=== PATIENT | female | born 1945 | race Caucasian/White ===

== ENCOUNTER → 2016-09-27 | Outpatient (REF) | payer MEDICARE, BC ==
[2016-09-27 14:58] LABS: ALBUMIN 4.1 GM/DL (3.2-5.2); ALBUMIN/GLOBULIN RATIO 1.46 (1.00-1.93); ALKALINE PHOSPHATASE 78 U/L (45-117); ALT/SGPT 30 U/L (12-78); ANION GAP 7 MEQ/L (8-16); AST/SGOT 20 U/L (15-37); BILIRUBIN,TOTAL 0.5 MG/DL (0.2-1.0); BLOOD UREA NITROGEN 15 MG/DL (7-18); CALCIUM LEVEL 8.7 MG/DL (8.8-10.2); CARBON DIOXIDE LEVEL 29 MEQ/L (21-32); CHLORIDE LEVEL 105 MEQ/L (98-107); CHOLESTEROL LEVEL 157 MG/DL (<200); CREATININE FOR GFR 0.69 MG/DL (0.55-1.02); GLOMERULAR FILTRATION RATE > 60.0 (>39); GLUCOSE, FASTING 135 MG/DL (83-110); POTASSIUM SERUM 4.6 MEQ/L (3.5-5.1); SODIUM LEVEL 141 MEQ/L (136-145); TOTAL PROTEIN 6.9 GM/DL (6.4-8.2); TRIGLYCERIDES LEVEL 97 MG/DL (<150)
== END ==
LOC: M SFHCLACO 08:58
PROVIDERS: ATTEND Physician Assistant
DX: E11.9 Type 2 diabetes mellitus without complications (principal); E78.2 Mixed hyperlipidemia; E55.9 Vitamin D deficiency, unspecified

== ENCOUNTER → 2016-10-02 | Outpatient (REF) | payer MEDICARE, BC | LOC: M SFHCLACO 15:24 | PROVIDERS: ATTEND Physician Assistant | DX: E11.9 Type 2 diabetes mellitus without complications (principal) | CPT/HCPCS: 82043; G0463 ==

== ENCOUNTER → 2016-10-16 | Outpatient (REF) | payer MEDICARE, BC ==
[2016-10-16 15:26] LABS: ALBUMIN 4.1 GM/DL (3.2-5.2); ALBUMIN/GLOBULIN RATIO 1.41 (1.00-1.93); ALKALINE PHOSPHATASE 80 U/L (45-117); ALT/SGPT 30 U/L (12-78); ANION GAP 6 MEQ/L (8-16); AST/SGOT 14 U/L (15-37); BILIRUBIN,TOTAL 0.7 MG/DL (0.2-1.0); BLOOD UREA NITROGEN 20 MG/DL (7-18); CARBON DIOXIDE LEVEL 31 MEQ/L (21-32); CHLORIDE LEVEL 104 MEQ/L (98-107); CREATININE FOR GFR 0.81 MG/DL (0.55-1.02); GLOMERULAR FILTRATION RATE > 60.0 (>39); GLUCOSE, FASTING 158 MG/DL (83-110); POTASSIUM SERUM 4.6 MEQ/L (3.5-5.1); SODIUM LEVEL 141 MEQ/L (136-145)
== END ==
LOC: M SFHCLACO 08:41
PROVIDERS: ATTEND Nurse Practitioner Family
DX: E11.9 Type 2 diabetes mellitus without complications (principal)

== ENCOUNTER → 2016-11-26 | Outpatient (CLI) | payer MEDICARE, BC ==
--- NOTE | 2016-11-26 13:00 | REPMRS ---
Patient History The patient states she has not had a clinical breast exam in over a year. Patient is postmenopausal. Family history of breast cancer in sister under age 50. Digital Woman Screen Mammo: November 26, 2016 - Exam #: [id number] Bilateral CC and MLO view(s) were taken. Technologist: Roz Garcia Technologist Prior study comparison: September 26, 2015, digital woman screen mammo performed at [facility]. September 21, 2014, digital woman screen mammo performed at [facility] to [facility]. FINDINGS: There are scattered fibroglandular densities. There has been no change in the appearance of the mammogram from the prior studies. There is a mild amount of residual fibroglandular tissue which is fairly symmetric. There is no interval development of dominant mass, architectural distortion, or clustered microcalcification suggestive of malignancy. ASSESSMENT: BI-RADS/ACR category 1 mammogram. Negative. Recommendation Routine screening mammogram in 1 year (for women over age 40). This mammogram was interpreted with the aid of an FDA-approved computer-aided dectection system. Electronically Signed By: Malik Blunt MD 11/26/16 1300
== END ==
LOC: M WHC 11:12
PROVIDERS: ATTEND Nurse Practitioner Family
DX: Z12.31 Encounter for screening mammogram for malignant neoplasm of breast (principal)

== ENCOUNTER → 2017-04-18 | Outpatient (REF) | payer MEDICARE, BC ==
[2017-04-18 16:34] LABS: ALBUMIN/GLOBULIN RATIO 1.43 (1.00-1.93); ALKALINE PHOSPHATASE 71 U/L (45-117); ALT/SGPT 28 U/L (12-78); ANION GAP 8 MEQ/L (8-16); AST/SGOT 12 U/L (15-37); BILIRUBIN,TOTAL 0.5 MG/DL (0.2-1.0); BLOOD UREA NITROGEN 23 MG/DL (7-18); CALCIUM LEVEL 8.4 MG/DL (8.8-10.2); CARBON DIOXIDE LEVEL 26 MEQ/L (21-32); CHLORIDE LEVEL 111 MEQ/L (98-107); CHOLESTEROL LEVEL 132 MG/DL (<200); CREATININE FOR GFR 0.64 MG/DL (0.55-1.02); GLOMERULAR FILTRATION RATE > 60.0 (>39); GLUCOSE, FASTING 126 MG/DL (83-110); POTASSIUM SERUM 4.5 MEQ/L (3.5-5.1); SODIUM LEVEL 145 MEQ/L (136-145); TOTAL PROTEIN 6.8 GM/DL (6.4-8.2); TRIGLYCERIDES LEVEL 101 MG/DL (<150)
== END ==
LOC: M SFHCLACO 08:40
PROVIDERS: ATTEND Nurse Practitioner Family
DX: E11.9 Type 2 diabetes mellitus without complications (principal); E78.2 Mixed hyperlipidemia; E55.9 Vitamin D deficiency, unspecified

== ENCOUNTER → 2018-01-28 | Outpatient (CLI) | payer MEDICARE, BC | LOC: M WHC 09:03 | DX: Z12.31 Encounter for screening mammogram for malignant neoplasm of breast (principal) | CPT/HCPCS: 77067 ==

== ENCOUNTER → 2018-02-05 | Outpatient (REF) | payer MEDICARE ==
[2018-02-05 13:39] LABS: APPEARANCE, URINE CLOUDY (CLEAR); BACTERIA, URINE AUTO 3+ (NEGATIVE); BILIRUBIN, URINE AUTO NEGATIVE (NEGATIVE); BLOOD, URINE BLOOD 1+ (NEGATIVE); COLOR, URINE YELLOW (YELLOW); GLUCOSE, URINE (UA) AUTO NEGATIVE (NEGATIVE); KETONE, URINE AUTO NEGATIVE (NEGATIVE); LEUKOCYTE ESTERASE, URINE AUTO 3+ (NEGATIVE); NITRITE, URINE AUTO NEGATIVE (NEGATIVE); PROTEIN, URINE AUTO NEGATIVE (NEGATIVE); RBC, URINE AUTO 8 /HPF (0-3); SPECIFIC GRAVITY URINE AUTO 1.008 (1.002-1.035); SQUAMOUS EPITHELIAL CELL UR AU 0 /HPF (0-6); UROBILINOGEN, URINE AUTO 0.2 mg/dL (0.0-2.0); WBC, URINE AUTO TNTC /HPF (0-3)
== END ==
LOC: M SFHCPLAZ 13:07
DX: R30.0 Dysuria (principal)
CPT/HCPCS: 81001

== ENCOUNTER → 2018-02-19 | Outpatient (CLI) | payer MEDICARE, BC | LOC: M RAD 09:57 | DX: N39.0 Urinary tract infection, site not specified (principal) | CPT/HCPCS: 76775 ==

== ENCOUNTER → 2018-02-20 | Outpatient (REF) | payer MEDICARE, BC ==
[2018-02-20 16:32] LABS: APPEARANCE, URINE CLEAR (CLEAR); BACTERIA, URINE AUTO NEGATIVE (NEGATIVE); BILIRUBIN, URINE AUTO NEGATIVE (NEGATIVE); BLOOD, URINE BLOOD NEGATIVE (NEGATIVE); COLOR, URINE YELLOW (YELLOW); GLUCOSE, URINE (UA) AUTO NEGATIVE (NEGATIVE); KETONE, URINE AUTO NEGATIVE (NEGATIVE); LEUKOCYTE ESTERASE, URINE AUTO TRACE (NEGATIVE); MUCUS, URINE SMALL (NEGATIVE); NITRITE, URINE AUTO NEGATIVE (NEGATIVE); PROTEIN, URINE AUTO NEGATIVE (NEGATIVE); RBC, URINE AUTO 2 /HPF (0-3); SQUAMOUS EPITHELIAL CELL UR AU 0 /HPF (0-6); UROBILINOGEN, URINE AUTO 0.2 mg/dL (0.0-2.0); WBC, URINE AUTO 4 /HPF (0-3)
== END ==
LOC: M SMT 16:15
DX: N39.0 Urinary tract infection, site not specified (principal)
CPT/HCPCS: 81001

== ENCOUNTER → 2018-03-27 | Outpatient (REF) | payer MEDICARE, BC ==
[2018-03-27 18:51] LABS: BACTERIA, URINE AUTO NEGATIVE (NEGATIVE); MUCUS, URINE SMALL (NEGATIVE); RBC, URINE AUTO 1 /HPF (0-3); SQUAMOUS EPITHELIAL CELL UR AU 1 /HPF (0-6); WBC, URINE AUTO 1 /HPF (0-3)
== END ==
LOC: M SMT 17:22
DX: R31.29 Other microscopic hematuria (principal)
CPT/HCPCS: 81015

== ENCOUNTER → 2019-01-06 | Outpatient (REF) | payer MEDICARE, BC ==
[2019-01-06 14:23] LABS: ALBUMIN 3.9 GM/DL (3.2-5.2); ALT/SGPT 25 U/L (12-78); BILIRUBIN,TOTAL 0.8 MG/DL (0.2-1.0); BLOOD UREA NITROGEN 15 MG/DL (7-18); CALCIUM LEVEL 8.9 MG/DL (8.8-10.2); CARBON DIOXIDE LEVEL 28 MEQ/L (21-32); CHLORIDE LEVEL 107 MEQ/L (98-107); GLOMERULAR FILTRATION RATE > 60.0 (>39); GLUCOSE, FASTING 127 MG/DL (70-100); POTASSIUM SERUM 4.5 MEQ/L (3.5-5.1); SODIUM LEVEL 141 MEQ/L (136-145); TOTAL 25(OH) VITAMIN D 32.5 NG/ML (30.0-100.0)
[2019-01-06 15:01] LABS: HEMOGLOBIN A1c 6.9 %
== END ==
LOC: M SFHCADAM 10:06
PROVIDERS: ATTEND Nurse Practitioner Family
DX: I10 Essential (primary) hypertension (principal); E11.9 Type 2 diabetes mellitus without complications; E55.9 Vitamin D deficiency, unspecified

== ENCOUNTER → 2019-02-16 | Outpatient (CLI) | payer MEDICARE, BC ==
--- NOTE | 2019-02-16 12:00 | REP ---
BILATERAL SCREENING DIGITAL MAMMOGRAM WITH 3D TOMOSYNTHESIS: There are no palpable abnormalities or other breast complaints. The the patient states she had a clinical breast examination January 15, 2019. The the patient states she performs self-breast examinations 12 times per year. The Tyrer-Cuzick Score is: 4.2% . Comparison is 08/21/2013. There are scattered areas of fibroglandular density. There is no dominant mass, micro calcific cluster or architectural distortion that would indicate malignancy. There are stable benign calcifications, unchanged. There are no additional findings on 3D tomosynthesiss. There is no change from the prior study. Impression: BIRADS/ACR category 2 mammogram. Benign findings . Recommendation: Routine annual screening mammography. This mammogram was interpreted with the aid of a FDA approved computer-aided detection system. A. Negative mammogram reports should not delay biopsy if a dominant or clinically suspicious mass is present. B. Not all breast cancers are identified by mammography or tomosynthesis. C. Adenosis and dense breasts may obscure an underlying neoplasm. Patient letter M1. Electronically Signed by Malik Werner MD 02/16/2019 11:51 A
== END ==
LOC: M WHC 10:28
PROVIDERS: ATTEND Nurse Practitioner Family
DX: Z12.31 Encounter for screening mammogram for malignant neoplasm of breast (principal)

== ENCOUNTER → 2019-05-07 | Outpatient (REF) | payer MEDICARE, BC ==
[2019-05-07 13:27] LABS: ALBUMIN 4.1 GM/DL (3.2-5.2); ALT/SGPT 34 U/L (12-78); BILIRUBIN,TOTAL 0.6 MG/DL (0.2-1.0); BLOOD UREA NITROGEN 14 MG/DL (7-18); CALCIUM LEVEL 8.9 MG/DL (8.8-10.2); CARBON DIOXIDE LEVEL 30 MEQ/L (21-32); CHLORIDE LEVEL 107 MEQ/L (98-107); CREATININE FOR GFR 0.65 MG/DL (0.55-1.30); GLOMERULAR FILTRATION RATE > 60.0 (>39); GLUCOSE, FASTING 126 MG/DL (70-100); POTASSIUM SERUM 4.5 MEQ/L (3.5-5.1); SODIUM LEVEL 142 MEQ/L (136-145); TOTAL PROTEIN 7.2 GM/DL (6.4-8.2)
[2019-05-07 13:29] LABS: TOTAL 25(OH) VITAMIN D 54.7 NG/ML (30.0-100.0)
== END ==
LOC: M SFHCADAM 10:31
PROVIDERS: ATTEND Nurse Practitioner Family
DX: E11.9 Type 2 diabetes mellitus without complications (principal); E55.9 Vitamin D deficiency, unspecified

== ENCOUNTER → 2019-11-02 | Outpatient (REF) | payer MEDICARE, BC ==
[2019-11-02 16:36] LABS: ALBUMIN 3.8 GM/DL (3.2-5.2); ALT/SGPT 28 U/L (12-78); BILIRUBIN,TOTAL 0.6 MG/DL (0.2-1.0); BLOOD UREA NITROGEN 18 MG/DL (7-18); CALCIUM LEVEL 8.9 MG/DL (8.8-10.2); CARBON DIOXIDE LEVEL 31 MEQ/L (21-32); CHLORIDE LEVEL 108 MEQ/L (98-107); CHOLESTEROL LEVEL 160 MG/DL (<200); CHOLESTEROL RISK RATIO 2.424 (<5); CREATININE FOR GFR 0.77 MG/DL (0.55-1.30); GLOMERULAR FILTRATION RATE > 60.0 (>39); GLUCOSE, FASTING 189 MG/DL (70-100); HDL CHOLESTEROL 66 MG/DL (>40); LDL CHOLESTEROL 69 MG/DL (<100); NON-HDL-C 94 MG/DL; SODIUM LEVEL 140 MEQ/L (136-145); TOTAL PROTEIN 6.6 GM/DL (6.4-8.2); TRIGLYCERIDES LEVEL 125 MG/DL (<150)
[2019-11-02 16:45] LABS: TOTAL 25(OH) VITAMIN D 57.2 NG/ML (30.0-100.0)
[2019-11-02 16:46] LABS: HEMOGLOBIN A1c 6.2 %
[2019-11-02 17:08] LABS: MALB URINE SIEMENS 12.8 MG/L; MAU/CREAT RATIO 9.6 MCG/MG (0.0-30.0)
== END ==
LOC: M SFHCADAM 13:36
PROVIDERS: ATTEND Nurse Practitioner Family
DX: E11.9 Type 2 diabetes mellitus without complications (principal); E78.2 Mixed hyperlipidemia; E55.9 Vitamin D deficiency, unspecified; Z79.899 Other long term (current) drug therapy

== ENCOUNTER → 2020-02-26 | Outpatient (CLI) | payer MEDICARE, BC ==
--- NOTE | 2020-03-29 13:49 | REPMRS ---
Patient History The patient states she had a clinical breast exam in December 2019. Patient is postmenopausal. Family history of breast cancer under age 50 in sister. 3D TOMOSYNTHESIS WAS PERFORMED. The [place] lifetime risk for breast cancer is 3.5%. 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 Digital Woman Screen Mammo: February 26, 2020 - Exam #: [id number] Bilateral CC and MLO view(s) were taken. Technologist: Yani Morgan, Technologist Prior study comparison: February 16, 2019, bilateral digital woman screen mammo performed at [facility]. January 28, 2018, bilateral digital woman screen mammo performed at [facility]. FINDINGS: The breast tissue is heterogeneously dense. This may lower the sensitivity of mammography. There has been no change in the appearance of the mammogram from the prior studies. There is a moderate amount of residual fibroglandular tissue which is fairly symmetric. There is no interval development of dominant mass, areas of architectural distortion, or clustered microcalcification typical of malignancy. Assessment: BI-RADS/ACR category 1 mammogram. Negative Mammogram. Recommendation Routine screening mammogram in 1 year (for women over age 40). This mammogram was interpreted with the aid of an FDA-approved computer-aided dectection system. Electronically Signed By: Malik Blunt MD 03/29/20 [id number]
== END ==
LOC: M WHC 12:18
PROVIDERS: ATTEND Nurse Practitioner Family
DX: Z12.31 Encounter for screening mammogram for malignant neoplasm of breast (principal)

== ENCOUNTER → 2020-04-26 | Outpatient (REF) | payer MEDICARE, BC ==
[2020-04-26 14:09] LABS: HEMOGLOBIN A1c 6.2 %
[2020-04-26 14:55] LABS: BILIRUBIN,TOTAL 0.7 MG/DL (0.2-1.0); BLOOD UREA NITROGEN 19 MG/DL (7-18); CALCIUM LEVEL 9.2 MG/DL (8.8-10.2); CARBON DIOXIDE LEVEL 26 MEQ/L (21-32); CHLORIDE LEVEL 107 MEQ/L (98-107); CREATININE FOR GFR 0.64 MG/DL (0.55-1.30); GLOMERULAR FILTRATION RATE > 60.0 (>39); GLUCOSE, FASTING 126 MG/DL (70-100); POTASSIUM SERUM 4.9 MEQ/L (3.5-5.1); SODIUM LEVEL 138 MEQ/L (136-145); TOTAL PROTEIN 7.1 GM/DL (6.4-8.2)
[2020-04-26 17:11] LABS: ALT/SGPT 23 U/L (12-78)
== END ==
LOC: M LABDRWAD 12:36
PROVIDERS: ATTEND Nurse Practitioner Family
DX: E11.9 Type 2 diabetes mellitus without complications (principal); I10 Essential (primary) hypertension

== ENCOUNTER → 2020-06-27 | Outpatient (REF) | payer MEDICARE, BC | LOC: M LAB REF 17:04 | PROVIDERS: ATTEND Physician Assistant | DX: L50.9 Urticaria, unspecified (principal) ==

== ENCOUNTER → 2020-11-01 | Outpatient (REF) | payer MEDICARE, BC ==
[2020-11-01 13:28] LABS: HEMOGLOBIN A1c 6.8 %
[2020-11-01 13:32] LABS: ALBUMIN 4.1 GM/DL (3.2-5.2); ALT/SGPT 31 U/L (12-78); BILIRUBIN,TOTAL 0.6 MG/DL (0.2-1.0); BLOOD UREA NITROGEN 11 MG/DL (7-18); CALCIUM LEVEL 8.7 MG/DL (8.8-10.2); CARBON DIOXIDE LEVEL 31 MEQ/L (21-32); CHLORIDE LEVEL 100 MEQ/L (98-107); CHOLESTEROL LEVEL 170 MG/DL (<200); CHOLESTEROL RISK RATIO 2.463 (<5); CREATININE FOR GFR 0.61 MG/DL (0.55-1.30); GLOMERULAR FILTRATION RATE > 60.0 (>39); GLUCOSE, FASTING 121 MG/DL (70-100); HDL CHOLESTEROL 69 MG/DL (>40); LDL CHOLESTEROL 74 MG/DL (<100); NON-HDL-C 101 MG/DL; POTASSIUM SERUM 4.3 MEQ/L (3.5-5.1); SODIUM LEVEL 136 MEQ/L (136-145); TOTAL PROTEIN 7.3 GM/DL (6.4-8.2); TRIGLYCERIDES LEVEL 133 MG/DL (<150)
[2020-11-02 14:26] LABS: CREATININE, URINE 47.5 MG/DL; MALB URINE SIEMENS 5.2 MG/L; MAU/CREAT RATIO 10.9 MCG/MG (0.0-30.0)
== END ==
LOC: M SFHCADAM 11:14
PROVIDERS: ATTEND Family Medicine
DX: E78.2 Mixed hyperlipidemia (principal); I10 Essential (primary) hypertension; E11.9 Type 2 diabetes mellitus without complications

== ENCOUNTER → 2021-01-24 | Outpatient (REF) | payer MEDICARE, BC ==
[2021-01-24 13:17] LABS: ALBUMIN 3.9 GM/DL (3.2-5.2); ALT/SGPT 33 U/L (12-78); BILIRUBIN,TOTAL 0.7 MG/DL (0.2-1.0); BLOOD UREA NITROGEN 13 MG/DL (7-18); CALCIUM LEVEL 9.1 MG/DL (8.8-10.2); CARBON DIOXIDE LEVEL 28 MEQ/L (21-32); CHLORIDE LEVEL 105 MEQ/L (98-107); CREATININE FOR GFR 0.66 MG/DL (0.55-1.30); GLOMERULAR FILTRATION RATE > 60.0 (>39); GLUCOSE, FASTING 127 MG/DL (70-100); POTASSIUM SERUM 4.7 MEQ/L (3.5-5.1); SODIUM LEVEL 140 MEQ/L (136-145); TOTAL PROTEIN 6.9 GM/DL (6.4-8.2)
[2021-01-24 13:38] LABS: HEMOGLOBIN A1c 6.4 %
== END ==
LOC: M SFHCADAM 11:01
PROVIDERS: ATTEND Nurse Practitioner Family
DX: E11.9 Type 2 diabetes mellitus without complications (principal)

== ENCOUNTER → 2021-02-09 | Outpatient (REF) | payer MEDICARE, BC | LOC: M SFHCADAM 14:45 | PROVIDERS: ATTEND Nurse Practitioner Family | DX: R19.7 Diarrhea, unspecified (principal) ==

== ENCOUNTER → 2021-03-09 | Outpatient (CLI) | payer MEDICARE, BC ==
--- NOTE | 2021-03-09 12:49 | REPMRS ---
Patient History The patient states she had a clinical breast exam in 2020. Family history of breast cancer under age 50 in sister. No breast complaints today Patient signed the MRS sheet 1st covid vaccine 02/06/21-left arm-Moderna 2nd covid vaccine 03/06/21-left arm Priors on PACS Patient Identification Verified Digital Woman Screen Mammo: March 09, 2021 - Exam #: [id number] Bilateral CC and MLO view(s) were taken. Technologist: Belia Hadley, Technologist Prior study comparison: February 26, 2020, bilateral digital woman screen mammo performed at [facility]. February 16, 2019, bilateral digital woman screen mammo performed at [facility]. January 28, 2018, bilateral digital woman screen mammo performed at [facility]. FINDINGS: There are scattered fibroglandular densities. There has been no change in the appearance of the mammogram from the prior studies. There is a mild amount of scattered fibroglandular density which is fairly symmetric. There is no interval development of dominant mass, architectural distortion, or grouped microcalcification suggestive of malignancy. 3-D tomosynthesis shows no additional findings. Assessment: BI-RADS/ACR category 1 mammogram. Negative Mammogram. Recommendation Routine screening mammogram of both breasts in 1 year (for women over age 40). This patient's [facility] Lifetime Breast Cancer Risk is estimated at 3.2 %. This mammogram was interpreted with the aid of an FDA-approved computer-aided dectection system. Electronically Signed By: Rosendo Rowan MD 03/09/21 [id number]
--- NOTE | 2021-03-09 12:56 | DEXAMM ---
INDICATION: M85.80 LOW BONE DENSITY. COMPARISON: Comparison study is from April 27, 2015.. TECHNIQUE: Bone density was measured using dual-energy x-ray absorptionmetry (DEXA). FINDINGS: AP SPINE L1-L4 BMD 1.376 g/cm2 Young Adult T-Score 1.5 Age Matched Z-Score 3.3. LT FEMUR, TOTAL BMD 0.893 g/cm2 Young Adult T-Score -0.9 Age Matched Z-Score 0.9. LT NECK BMD 0.892 g/cm2 Young Adult T-Score -1.0 Age Matched Z-Score 1.0. RT FEMUR, TOTAL BMD 0.886 g/cm2 Young Adult T-Score -1.0 Age Matched Z-Score 0.9. RT NECK BMD 0.909 g/cm2 Young Adult T-Score -0.9 Age Matched Z-Score 1.1. IMPRESSION: There is normal bone density of the spine. There is low bone density of the left hip. There is low bone density of the right hip. The density of the spine has increased 2.6% since the initial exam on April 27, 2015. The density of the left hip has decreased 3.4% since initial exam on April 27, 2015. The density of the right hip has decreased 4.0% since the initial exam on April 27, 2015. FOLLOW-UP: Recommendation for the next bone density exam: 2 years. <Electronically signed by Rosendo Rowan > 03/09/21 [id number]
== END ==
LOC: M WHC 11:03
PROVIDERS: ATTEND Nurse Practitioner Family
DX: Z12.31 Encounter for screening mammogram for malignant neoplasm of breast (principal); M85.80 Other specified disorders of bone density and structure, unspecified site; Z80.3 Family history of malignant neoplasm of breast

== ENCOUNTER → 2021-05-18 | Outpatient (CLI) | payer MEDICARE, BC ==
[~2021-05-18] MED LIST: APPL300T4 PO; CALCCAP4 PO; CARV25TA PO; CODCAP PO; METH-855 PO; OSTE5TAB PO; PROBCAP14 PO; ROSU20TA5 PO; SM STAB3 PO
[2021-05-18 15:45] LABS: ALT/SGPT 28 U/L (12-78); BILIRUBIN,TOTAL 0.7 MG/DL (0.2-1.0); BLOOD UREA NITROGEN 16 MG/DL (7-18); CALCIUM LEVEL 9.1 MG/DL (8.8-10.2); CARBON DIOXIDE LEVEL 31 MEQ/L (21-32); CHLORIDE LEVEL 107 MEQ/L (98-107); CREATININE FOR GFR 0.67 MG/DL (0.55-1.30); GLOMERULAR FILTRATION RATE > 60.0 (>39); GLUCOSE, FASTING 119 MG/DL (70-100); POTASSIUM SERUM 4.9 MEQ/L (3.5-5.1); SODIUM LEVEL 140 MEQ/L (136-145)
[2021-05-18 15:53] LABS: TOTAL 25(OH) VITAMIN D 58.1 NG/ML (30.0-100.0)
[2021-05-18 17:25] LABS: HEMOGLOBIN A1c 6.3 %
== END ==
LOC: M PLALAB 12:33
PROVIDERS: ATTEND Nurse Practitioner Family
DX: E55.9 Vitamin D deficiency, unspecified (principal); E11.9 Type 2 diabetes mellitus without complications
CPT/HCPCS: 36415; 80053; 82306; 83036; G0463

== ENCOUNTER → 2021-05-19 | Outpatient (CLI) | payer MEDICARE, BC | LOC: M LABSMTC 10:21 | PROVIDERS: ATTEND Anesthesiology | DX: Z01.812 Encounter for preprocedural laboratory examination (principal); Z20.822 Contact with and (suspected) exposure to COVID-19 ==

== ENCOUNTER 2021-05-24 08:45 | Day surgery (SDC) | payer MEDICARE, BC ==
[~2021-05-24] VITALS: Ht 162.6 cm; Wt 79.4 kg
[~2021-05-24 08:45] MED LIST changes: +LIDOCAINE 2% 100MG/5ML SDV (FOR ANES.) As Ordered ONE; +NS 1,000 ML IV ONE; +propofoL 200 MG/20 ML VIAL As Ordered ONE
--- OUTSIDE RECORDS SUMMARY | 2021-05-24 08:48 | CCD | Continuity of Care Document ---
Author Author Shreya BALDERAS M.D. 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 Onset: 03/28/20 21 Screening for malignant neoplasm of colon Devin shipley M.D. Onset: 10/19/2014 Social History Type Date Description Comments Sex Unknown ETOH Use Rarely consumes alcohol Tobacco Use Start: Unknown End: Unknown Patient is a former smoker Allergies, Adverse Reactions, Alerts Active Allergies Criticality Reaction | Severity Comments Date Penicillin Unable to assess criticality 10/19/2014 Codeine Unable to assess criticality 10/19/2014 Lipitor Unable to assess criticality 10/19/2014 Metformin Unable to assess criticality 10/19/2014 Oxycodone Unable to assess criticality 10/19/2014 Macrobid Unable to assess criticality 10/19/2014 Medications Active Medications SIG Qnty Indications Ordering Provide r Date S[place]ab [id number] Tablets as directed 1box Devin Balderas M.D. 03/28/2021 Loperamide HCL 2mg Capsules 1 cap by mouth every 4 hours as needed diarrhea 180caps Devin crockett M.D. 03/28/2021 Vitamin D-3 5000Unit Tablets Three Times A Day Unknown Carvedilol 25mg Tablets Take One Tablet By Mouth Twice A Day With Meals Unknown Methenamine Hippurate 1gm Tablets Take One Tablet By Mouth Twice A Day Unknown Rosuvastatin Calcium 20mg Tablets Take One Tablet By Mouth Every Day Unknown Cod Liver Oil Capsules Unknown Apple Cider Vinegar 500mg Tablets Unknown B Complex Capsules Unknown Caltrate 600+D3 [id number] Tablets Unknown Osteo Bi-Flex One Per Day Tablets Unknown Parotid PMG Unknown Trubiotics Capsules Unknown Immunizations Description No Information Available Vital Signs Date Vital Result Comment 03/28/2021 2:22pm Height 63 inches 5'3" Weight 167.00 lb BP Systolic 132 mmHg BP Diastolic 75 mmHg Heart Rate 63 /min BMI (Body Mass Index) 29.6 kg/m2 Weight 75.751 kg Body Temperature 96.9 F 10/19/2014 1:41pm Height 63 inches 5'3" Weight 175.00 lb BP Systolic 151 mmHg BP Diastolic 83 mmHg Heart Rate 75 /min BMI (Body Mass Index) 31.0 kg/m2 Weight 79.380 kg Results Description No Information Available Procedures Date Code Description Status 03/28/2021 27989 Office/Outpatient New Low [facility] 30 -44 Minutes Completed Medical Devices Description No Information Available Encounters Type Date Location Provider Dx Diagnosis Office Visit 03/28/2021 2:00p Main Office Devin Balderas M.D. K 52.9 Noninfective gastroenteritis and colitis, unspecified Assessments Date Code Description Provider 03/28/2021 K52.9 Chronic diarrhea Devin crockett M.D. Plan of Treatment Future Appointment(s):* 05/10/2021 7:30 am - Harpreet at Main Office * 05/24/2021 11:15 am - Devin Balderas M.D. at Main Office 03/28/2021 - Devin Balderas M.D.* K52.9 Chronic diarrhea* Comments:* 76 yo wf who presents for a colonoscopy due to a h/o diarrhea for over 1 yr. No c/o abdominal pain, weight loss, positive change in bowel habits, no rectal bl eeding. No family h/o colon cancer. No h/o chest pain, or sob. Plan:1. Colonoscopy + ileoscopy + biopsies.2. Informed consent. Functional Status Description No Information Available Mental Status Description No Information Available Referrals Description No Information Available
--- OUTSIDE RECORDS SUMMARY | 2021-05-24 08:49 | CCD ---
Author Author [facility] Organization [facility] Address Unknown Phone Unavailable Care Team Providers Care Marketing Strategy Manager Name Role Phone Lele Balderas MD Unavailable Unavailable Lele Balderas MD Unavailable Unavailable Lele Balderas MD Unavailable Unavailable Lele Balderas MD Unavailable Unavailable Lele Balderas MD Unavailable Unavailable Lele Balderas MD Unavailable Unavailable Lele Balderas MD Unavailable Unavailable Lele Balderas MD Unavailable Unavailable Lele Balderas MD Unavailable Unavailable Lele Balderas MD Unavailable Unavailable Lele Balderas MD Unavailable Unavailable Lele Balderas MD Unavailable Unavailable Lele Balderas MD Unavailable Unavailable Lele Balderas MD Unavailable Unavailable Lele Balderas MD Unavailable Unavailable Lele Balderas MD Unavailable Unavailable Lele Balderas MD Unavailable Unavailable Lele Balderas MD Unavailable Unavailable Lele Balderas MD Unavailable Unavailable Lele Balderas MD Unavailable Unavailable Lele Balderas MD Unavailable Unavailable Lele Balderas MD Unavailable Unavailable Lele Balderas MD Unavailable Unavailable Lele Balderas MD Unavailable Unavailable Lele Balderas MD Unavailable Unavailable Lele Balderas MD Unavailable Unavailable Lele Balderas MD Unavailable Unavailable Lele Balderas MD Unavailable Unavailable Lele Balderas MD Unavailable Unavailable Lele Balderas MD Unavailable Unavailable Lele Balderas MD Unavailable Unavailable Andrey, S Devin MD Unavailable Unavailable Andrey, S Devin MD Unavailable Unavailable Andrey, S Devin MD Unavailable Unavailable Andrey, S Devin MD Unavailable Unavailable Andrey, S Devin MD Unavailable Unavailable Andrey, S Devin MD Unavailable Unavailable Andrey, S Devin MD Unavailable Unavailable Andrey, S Devin MD Unavailable Unavailable Andrey, S Devin MD Unavailable Unavailable Andrey, S Devin MD Unavailable Unavailable Andrey, S Devin MD Unavailable Unavailable Andrey, S Devin MD Unavailable Unavailable Andrey, S Devin MD Unavailable Unavailable Andrey, S Devin MD Unavailable Unavailable Andrey, S Devin MD Unavailable Unavailable Andrey, S Devin MD Unavailable Unavailable Andrey, S Devin MD Unavailable Unavailable Andrey, S Devin MD Unavailable Unavailable Andrey, S Devin GALLAGHER Unavailable Unavailable Gabris, Omar Pedersen MD, [facility] Unavailable Unavailable Gabris, Omar Pedersen MD, [facility] Unavailable Unavailable Gabris, Omar Pedersen MD, [facility] Unavailable Unavailable Gabris, Omar Pedersen MD, [facility] Unavailable Unavailable Gabris, Omar Pedersen MD, [facility] Unavailable Unavailable Gabris, Omar Pedersen MD, [facility] Unavailable Unavailable Gabris, Omar Pedersen MD, [facility] Unavailable Unavailable Gabris, Omar Pedersen MD, [facility] Unavailable Unavailable Gabris, Omar Pedersen MD, [facility] Unavailable Unavailable Gabris, Omar Pedersen MD, [facility] Unavailable Unavailable Gabris, Omar Pedersen MD, [facility] Unavailable Unavailable Gabris, Omar Pedersen MD, [facility] Unavailable Unavailable Gabris, Omar Pedersen MD, [facility] Unavailable Unavailable Gabris, Omar Pedersen MD, [facility] Unavailable Unavailable Gabris, Omar Pedersen MD, [facility] Unavailable Unavailable Gabris, Oamr Pedersen MD, [facility] Unavailable Unavailable Gabris, Omar Pedersen MD, [facility] Unavailable Unavailable Gabris, Omar Pedersen MD, [facility] Unavailable Unavailable Gabris, Omar Pedersen MD, [facility] Unavailable Unavailable Gabris, Omar Pedersen MD, [facility] Unavailable Unavailable Gabris, Omar Pedersen MD, [facility] Unavailable Unavailable Gabris, Omar Pedersen MD, [facility] Unavailable Unavailable Gabris, Omar Pedersen MD, [facility] Unavailable Unavailable Gabris, Omar Pedersen MD, [facility] Unavailable Unavailable Gabris, Omar Pedersen MD, [facility] Unavailable Unavailable Gabris, Omar Pedersen MD, [facility] Unavailable Unavailable Gabris, Omar Pedersen MD, [facility] Unavailable Unavailable Gabris, Omar Pedersen MD, [facility] Unavailable Unavailable Gabris, Omar Pedersen MD, [facility] Unavailable Unavailable Gabris, Omar Pedersen MD, [facility] Unavailable Unavailable Gabris, Omar Pedersen MD, [facility] Unavailable Unavailable Gabris, Omar Pedersen MD, [facility] Unavailable Unavailable Gabris, Omar Pedersen MD, [facility] Unavailable Unavailable Gabris, Omar Pedersen MD, [facility] Unavailable Unavailable Gabris, Omar Pedersen MD, [facility] Unavailable Unavailable Gabris, Omar Pedersen MD, [facility] Unavailable Unavailable Gabris, Omar Pedersen MD, [facility] Unavailable Unavailable Gabris, Omar Pedersen MD, [facility] Unavailable Unavailable Gabris, Omar Pedersen MD, [facility] Unavailable Unavailable Gabris, Omar Pedersen MD, [facility] Unavailable Unavailable Gabris, Omar Pedersen MD, [facility] Unavailable Unavailable Gabris, Omar Pedersen MD, [facility] Unavailable Unavailable Gabris, Omar Pedersen MD, [facility] Unavailable Unavailable Gabris, Omar Pedersen MD, [facility] Unavailable Unavailable Gabris, Omar Pedersen MD, [facility] Unavailable Unavailable Gabris, Omar Pedersen MD, [facility] Unavailable Unavailable Gabris, Omar Pedersen MD, [facility] Unavailable Unavailable Gabris, Omar Pedersen MD, [facility] Unavailable Unavailable Gabris, Omar Pedersen MD, [facility] Unavailable Unavailable Gabris, Omar Pedersen MD, [facility] Unavailable Unavailable Gabris, Omar Pedersen MD, [facility] Unavailable Unavailable Gabris, Omar Pedersen MD, [facility] Unavailable Unavailable Gabris, Omar Pedersen MD, [facility] Unavailable Unavailable Gabris, Omar Pedersen MD, [facility] Unavailable Unavailable Gabris, Omar Pedersen MD, [facility] Unavailable Unavailable Gabris, Omar Pedersen MD, [facility] Unavailable Unavailable Gabris, Omar Pedersen MD, [facility] Unavailable Unavailable Gabris, Omar Pedersen MD, [facility] Unavailable Unavailable Gabris, Omar Pedersen MD, [facility] Unavailable Unavailable Gabris, Omar Pedersen MD, [facility] Unavailable Unavailable Gabris, Omar Pedersen MD, [facility] Unavailable Unavailable Gabris, Omar Pedersen MD, [facility] Unavailable Unavailable Gabris, Omar Pedersen MD, [facility] Unavailable Unavailable Gabris, Omar Pedersen MD, [facility] Unavailable Unavailable Gabris, Omar Pedersen MD, [facility] Unavailable Unavailable Gabris, Omar Pedersen MD, [facility] Unavailable Unavailable Gabris, Omar Pedersen MD, [facility] Unavailable Unavailable Gabris, Omar Pedersen MD, [facility] Unavailable Unavailable Gabris, Omar Pedersen MD, [facility] Unavailable Unavailable Gabris, Omar Pedersen MD, [facility] Unavailable Unavailable Gabris, Omar Pedersen MD, [facility] Unavailable Unavailable Ericka WILD Unavailable Unavailable Ericka WILD Unavailable Unavailable Ericka WILD PA Unavailable Unavailable Ericka WILD PA Unavailable Unavailable Ericka WILD PA Unavailable Unavailable WILD, W BRIDGETTE PA Unavailable Unavailable WILD, W BRIDGETTE PA Unavailable Unavailable WILD, W BRIDGETTE PA Unavailable Unavailable WILD, W BRIDGETTE PA Unavailable Unavailable WILD, W BRIDGETTE PA Unavailable Unavailable WILD, W BRIDGETTE PA Unavailable Unavailable WILD, W BRIDGETTE PA Unavailable Unavailable WILD, W BRIDGETTE PA Unavailable Unavailable WILD, W BRIDGETTE PA Unavailable Unavailable WILD, W BRIDGETTE PA Unavailable Unavailable WILD, W BRIDGETTE PA Unavailable Unavailable WILD, W BRIDGETTE PA Unavailable Unavailable WILD, W BRIDGETTE PA Unavailable Unavailable WILD, W BRIDGETTE PA Unavailable Unavailable WILD, W BRIDGETTE PA Unavailable Unavailable WILD, W BRIDGETTE PA Unavailable Unavailable WILD, W BRIDGETTE PA Unavailable Unavailable WILD, W BRIDGETTE PA Unavailable Unavailable WILD, W BRIDGETTE PA Unavailable Unavailable WILD, W BRIDGETTE PA Unavailable Unavailable WILD, W BRIDGETTE PA Unavailable Unavailable WILD, W BRIDGETTE PA Unavailable Unavailable WILD, W BRIDGETTE PA Unavailable Unavailable WILD, W BRIDGETTE PA Unavailable Unavailable WILD, W BRIDGETTE PA Unavailable Unavailable WILD, W BRIDGETTE PA Unavailable Unavailable WILD, W BRIDGETTE PA Unavailable Unavailable WILD, W BRIDGETTE PA Unavailable Unavailable WILD, W BRIDGETTE PA Unavailable Unavailable WILD, W BRIDGETTE PA Unavailable Unavailable WILD, W BRIDGETTE PA Unavailable Unavailable WILD, W BRIDGETTE PA Unavailable Unavailable WILD, W BRIDGETTE PA Unavailable Unavailable WILD, W BRIDGETTE PA Unavailable Unavailable WILD, W BRIDGETTE PA Unavailable Unavailable WILD, W BRIDGETTE PA Unavailable Unavailable WILD, W BRIDGETTE PA Unavailable Unavailable WILD, W BRIDGETTE PA Unavailable Unavailable WILD, W BRIDGETTE PA Unavailable Unavailable Re-disclosure Warning The records that you are about to access may contain information from federally-assisted alcohol or drug abuse programs. If such information is present, then the following federally mandated warning applies: This information has been disclosed to you from records protected by federal confidentiality rules (42 CFR part 2). The federal rules prohibit you from making any further disclosure of this information unless further disclosure is expressly permitted by the written consent of the person to whom it pertains or as otherwise permitted by 42 CFR part 2. A general authorization for the release of medical or other information is NOT sufficient for this purpose. The Federal rules restrict any use of the information to criminally investigate or prosecute any alcohol or drug abuse patient.The records that you are about to access may contain highly sensitive health information, the redisclosure of which is protected by Article 27-F of the [facility] Public Health law. If you continue you may have access to information: Regarding HIV / AIDS; Provided by facilities licensed or operated by the [facility] Office of Mental Health; or Provided by the [facility] Office for People With Developmental Disabilities. If such information is present, then the following [facility] mandated warning applies: This information has been disclosed to you from confidential records which are protected by state law. State law prohibits you from making any further disclosure of this information without the specific written consent of the person to whom it pertains, or as otherwise permitted by law. Any unauthorized further disclosure in violation of state law may result in a fine or senior care sentence or both. A general authorization for the release of medical or other information is NOT sufficient authorization for further disc losure. Encounters Encounter Providers Location Date Indications Data Source(s ) Outpatient [address] [place] [id number] 05/18/2021 12:00:00 AM EDT eCW1 ([facility]) Outpatient Attender: Devin Balderas MD Main Office 03/28/2021 02:00:00 PM EDT MEDENT ([facility]) Outpatient [address] [place] [phone] 02/01/2021 12:00:00 AM EDT eCW1 ([facility]) Outpatient [address] [place] [address] Y [id number] 11/10/2020 12:00:00 AM EDT eCW1 ([facility]) [place] [address] [facility] [place] [id number] 11/02/2020 12:00:00 AM EDT eCW1 ([facility]) Outpatient [address] [place] [address] Y [phone] 09/29/2020 12:00:00 AM EST eCW1 ([facility]) Outpatient [address] [place] [address] Y [phone] 08/22/2020 12:00:00 AM EST eCW1 ([facility]) Unknown [address] [place] [address], [place] [phone] 07/13/2020 12:00:00 AM EST eCW1 ([facility]) [place] [address] [facility] [address] 07/05/2020 12:00:00 AM EST eCW1 ([facility]) [place] [address] [facility] [address] 06/27/2020 12:00:00 AM EST eCW1 ([facility]) Outpatient Attender: Slava Calles MD, FACCReferre r: Sl[facility] Calles [facility], [email or web address] 06/09/2020 12:00:00 AM EST - 06/09/2020 10:24:48 AM EST [facility] Outpatient Referrer: Slava Calles MD, [facility] [email or web address] 06/09/2020 12:00:00 AM EST [facility] Outpatient [address] [facility] [place] [address] 05/30/2020 12:00:00 AM EST eCW1 ([facility]) OFFICE/OUTPATIENT VISIT, EST 05/07/2020Outpatient Attender: BRIDGETTE ARTHUR 05/07/2020 09:07:59 AM EDT EARL ([facility]) Outpatient [address] [facility] [place] [address] 04/28/2020 12:00:00 AM EDT eCW1 ([facility]) Outpatient Attender: Slava Calles MD, [facility] [email or web address] 06/04/2019 09:01:20 AM EST - 06/04/2019 09:57:45 AM EST [facility] Immunizations Vaccine Date Status Description Data Source(s) COVID-19 dose #2 given elsewhere Unspecified 05/18/2021 11:3 9:00 AM EDT completed eCW1 ([facility]) COVID-19 dose #1 given elsewhere Unspecified 05/18/2021 11:3 9:00 AM EDT completed eCW1 ([facility]) COVID-19 VACCINE Moderna 03/06/2021 12:00:00 AM EDT completed [facility] Vaccine Series Complete: YESThis Data wa s Submitted to [facility] Via [employer]. COVID-19 VACCINE Moderna 02/06/2021 12:00:00 AM EDT completed [facility] Vaccine Series Complete: NOThis Data was Submitted to [facility] [employer]. INFLUENZA VIRUS VACCINE QUADRIVAL SPLIT 2020-21(65 YR UP)/PF 05/05/2020 12:00:00 AM EDT completed [facility] Medications Medication Brand Name Start Date Product Form Dose Route Admi nistrative Instructions Pharmacy Instructions Status Indications Reaction Description Data Source(s) 2 mg 03/29/2021 12:00:00 AM EDT capsule 180 TAKE ONE CAPSULE BY MOUTH EVERY 4 HOURS NEEDED FOR DIARRHEA TAKE ONE CAPSULE BY MOUTH EVERY 4 HOURS NEEDED FOR DIARRHEA SOLD: 03/30/2021 [facility] Sutab Sutab 03/28/2021 12:00:00 AM EDT active [facility] ([facility]) Loperamide Hydrochloride 2 MG Oral Capsule Loperamide HCL 03/28/2021 12:00:00 AM EDT ORAL active [facility]) 1 gram 01/02/2021 12:00:00 AM EDT tablet 60 TAKE ONE TABLET BY MOUTH TWICE A DAY TAKE ONE TABLET BY MOUTH TWICE A DAY SOLD: 01/03/2021 [facility] 1 gram 01/02/2021 12:00:00 AM EDT tablet 60 TAKE ONE TABLET BY MOUTH TWICE A DAY TAKE ONE TABLET BY MOUTH TWICE A DAY SOLD: 04/25/2021 [facility] Rosuvastatin calcium 20 MG Oral Tablet ROSUVASTATIN CALCIUM 11/02/2020 12:00:00 AM EDT tablet 90 TAKE ONE TABLET BY MOUTH DONOVAN RY DAY TAKE ONE TABLET BY MOUTH EVERY DAY SOLD: 11/05/2020 [facility] Rosuvastatin calcium 20 MG Oral Tablet ROSUVASTATIN CALCIUM 11/02/2020 12:00:00 AM EDT tablet 90 TAKE ONE TABLET BY MOUTH DONOVAN RY DAY TAKE ONE TABLET BY MOUTH EVERY DAY SOLD: 03/09/2021 [facility] 5 mg 08/22/2020 12:00:00 AM EST tablet 90 TAKE 3 TABLETS BY MOUTH AT BEDTIME TAKE 3 TABLETS BY MOUTH AT BEDTIME SOLD: 08/23/2020 [facility] Cimetidine 200 MG Oral Tablet Cimetidine 200 MG 08/22/2020 12:00:00 AM EST 1.0 {tablet_at_bedtime} active Cimetidine 2 00 MG eCW1 ([facility]) 5 mg 08/22/2020 12:00:00 AM EST tablet 90 TAKE 3 TABLETS BY MOUTH AT BEDTIME TAKE 3 TABLETS BY MOUTH AT BEDTIME SOLD: 09/27/2020 [facility] 200 mg 08/22/2020 12:00:00 AM EST tablet 60 TAKE ONE TABLET BY MOUTH TWICE A DAY TAKE ONE TABLET BY MOUTH TWICE A DAY SOLD: 09/22/2020 [facility] 200 mg 08/22/2020 12:00:00 AM EST tablet 60 TAKE ONE TABLET BY MOUTH TWICE A DAY TAKE ONE TABLET BY MOUTH TWICE A DAY SOLD: 08/23/2020 [facility] Cimetidine 200 MG Oral Tablet Cimetidine 200 MG 08/22/2020 12:00:00 AM EST 1.0 {tablet_at_bedtime} active Cimetidine 2 00 MG W1 ([facility]) levocetirizine dihydrochloride 5 MG Oral Tablet Levocetirizine Dihydrochloride 5 MG Levocetirizine Dihydrochloride 5 MG 07/13/2020 12:00:00 AM EST 3.0 {tablets_in_the_evening} active Levocet irizine Dihydrochloride 5 MG eCW1 ([facility]) 5 mg 07/13/2020 12:00:00 AM EST tablet 30 TAKE ONE TABLET BY MOUTH EVERY EVENING TAKE ONE TABLET BY MOUTH EVERY EVENING SOLD: 07/14/2020 [facility] levocetirizine dihydrochloride 5 MG Oral Tablet Levocetirizine Dihydrochloride 5 MG Levocetirizine Dihydrochloride 5 MG 07/13/2020 12:00:00 AM EST 1.0 {tablet_in_the_evening} active Levoceti rizine Dihydrochloride 5 MG eCW1 ([facility]) levocetirizine dihydrochloride 5 MG Oral Tablet Levocetirizine Dihydrochloride 5 MG Levocetirizine Dihydrochloride 5 MG 07/13/2020 12:00:00 AM EST 3.0 {tablets_in_the_evening} active Levocet irizine Dihydrochloride 5 MG eCW1 ([facility]) Prednisone 10 MG Oral Tablet predniSONE 10 MG predniSONE 10 MG 06/28/2020 12:00:00 AM EST 1.0 {tablet} suspended predniSONE 10 MG eCW1 ([facility]) Prednisone 10 MG Oral Tablet PredniSONE 10 MG PredniSONE 10 MG 06/28/2020 12:00:00 AM EST 1.0 {tablet} suspended PredniSONE 10 MG eCW1 ([facility]) Prednisone 10 MG Oral Tablet PredniSONE 10 MG PredniSONE 10 MG 06/28/2020 12:00:00 AM EST 1.0 {tablet} active Pr edniSONE 10 MG eCW1 ([facility]) Prednisone 10 MG Oral Tablet PredniSONE 10 MG PredniSONE 10 MG 06/28/2020 12:00:00 AM EST 1.0 {tablet} suspended PredniSONE 10 MG eCW1 ([facility]) 10 mg 06/28/2020 12:00:00 AM EST tablet 20 TAKE ONE TABLET BY MOUTH TWICE A DAY FOR 5 DAYS, THEN 1 TABLET ONCE DAILY TAKE ONE TABLET BY MOUTH TWICE A DAY FOR 5 DAYS, THEN 1 TABLET ONCE DAILY SOLD: 06/30/2020 [facility] Prednisone 10 MG Oral Tablet PredniSONE 10 MG PredniSONE 10 MG 06/28/2020 12:00:00 AM EST 1.0 {tablet} suspended PredniSONE 10 MG eCW1 ([facility]) Prednisone 10 MG Oral Tablet PredniSONE 10 MG PredniSONE 10 MG 06/28/2020 12:00:00 AM EST 1.0 {tablet} active Pr edniSONE 10 MG eCW1 ([facility]) Prednisone 10 MG Oral Tablet PredniSONE 10 MG PredniSONE 10 MG 06/28/2020 12:00:00 AM EST 1.0 {tablet} suspended PredniSONE 10 MG eCW1 ([facility]) Prednisone 10 MG Oral Tablet PredniSONE 10 MG PredniSONE 10 MG 06/28/2020 12:00:00 AM EST 1.0 {tablet} active Pr edniSONE 10 MG eCW1 ([facility]) carvedilol 25 MG Oral Tablet CARVEDILOL 05/17/2020 12:00:00 AM EDT tab let 180 TAKE ONE TABLET BY MOUTH TWICE A DAY WITH MEALS TAKE ONE TABLET BY MOUTH TWICE A DAY WITH MEALS SOLD: 11/28/[address] [facility] carvedilol 25 MG Oral Tablet CARVEDILOL 05/17/2020 12:00:00 AM EDT tab let 180 TAKE ONE TABLET BY MOUTH TWICE A DAY WITH MEALS TAKE ONE TABLET BY MOUTH TWICE A DAY WITH MEALS SOLD: 03/09/2021 [facility] carvedilol 25 MG Oral Tablet CARVEDILOL 05/17/2020 12:00:00 AM EDT tab let 180 TAKE ONE TABLET BY MOUTH TWICE A DAY WITH MEALS TAKE ONE TABLET BY MOUTH TWICE A DAY WITH MEALS SOLD: 08/18/2020 [facility] carvedilol 25 MG Oral Tablet CARVEDILOL 05/17/2020 12:00:00 AM EDT tab let 180 TAKE ONE TABLET BY MOUTH TWICE A DAY WITH MEALS TAKE ONE TABLET BY MOUTH TWICE A DAY WITH MEALS SOLD: 05/20/2020 [facility] 0.025 % 05/07/2020 12:00:00 AM EDT cream 45 APPLY 1 GRAM TOPICALLY TWO TIMES A DAY NEEDED DO NOT APPLY ON THE FACE APPLY 1 GRAM TOPICALLY TWO TIMES A DAY NEEDED DO NOT APPLY ON THE FACE SOLD: 05/07/2020 [facility] Prednisone 20 MG Oral Tablet predniSONE 20 mg tablet predniS ONE 20 mg tablet 05/07/2020 12:00:00 AM EDT 2 completed , Take 2 tablet orally Every day 05/07/2020 [facility] cetirizine hydrochloride 10 MG Oral Tablet [Zyrtec] Zy rTEC 10 mg tablet ZyrTEC 10 mg tablet 05/07/2020 12:00:00 AM EDT 1 compl eted , Take 1 tablet orally Every day 05/07/2020 [facility] ([facility]) Hydroxyzine Hydrochloride 25 MG Oral Tablet hydrOXYzin e HCL 25 mg tablet hydrOXYzine HCL 25 mg tablet 05/07/2020 12:00:00 AM EDT 1 completed , Take 1 tablet orally Three times a day causes drowsiness. As needed 05/07/2020 [facility] ([facility]) 20 mg 05/07/2020 12:00:00 AM EDT tablet 10 TAKE TWO TABLETS BY MOUTH EVERY DAY TAKE TWO TABLETS BY MOUTH EVERY DAY SOLD: 05/07/2020 [facility] Triamcinolone Acetonide 0.25 MG/ML Topic al Cream triamcinolone acetonide 0.025 % topical cream triamcinolone acetonide 0.025 % topical cream 05/07/20 12:00:00 AM EDT 1 completed , Appl y 1 gram topically Twice a day as needed. Not on the face 05/07/2020 [facility] ([facility]) Terbinafine hydrochloride 10 MG/ML Topic al Cream terbinafine HCL 1 % topical cream terbinafine HCL 1 % topical cream 05/07/2020 12:00:00 AM EDT 1 completed , Apply 1 gram topically Twice a day 05/07/2020 [facility] ([facility]) 25 mg 05/07/2020 12:00:00 AM EDT tablet 30 TAKE ONE TABLET BY MOUTH THREE TIMES A DAY NEEDED MAY CAUSE DROWSINESS TAKE ONE TABLET BY MOUTH THREE TIMES A DAY NEEDED MAY CAUSE DROWSINESS SOLD: 05/07/2020 [facility] Rosuvastatin calcium 20 MG Oral Tablet ROSUVASTATIN CALCIUM 04/30/2020 12:00:00 AM EDT tablet 90 TAKE ONE TABLET BY MOUTH DONOVAN DAY TAKE ONE TABLET BY MOUTH EVERY DAY SOLD: 04/30/2020 [facility] Rosuvastatin calcium 20 MG Oral Tablet ROSUVASTATIN CALCIUM 04/30/2020 12:00:00 AM EDT tablet 90 TAKE ONE TABLET BY MOUTH DONOVAN TAKE ONE TABLET BY MOUTH EVERY DAY SOLD: 08/06/2020 [facility] Betamethasone 0.5 MG/ML Topical Cream be tamethasone dipropionate 0.05 % topical cream betamethasone dipropionate 0.05 % topical cream 2019 12:00:00 AM EDT 1 completed 05/07/2020 [facility] ([facility]) 0.05 % 02/16/2020 12:00:00 AM EDT cream 30 APPLY A THIN LAYER TO BOTH FOREARMS EVERY 12 HOURS APPLY A THIN LAYER TO BOTH FOREARMS EVERY 12 HOURS RACHEL [facility] 1 gram 09/24/2019 12:00:00 AM EST tablet 60 TAKE ONE TABLET BY MOUTH TWICE A DAY TAKE ONE TABLET BY MOUTH TWICE A DAY SOLD: 08/18/2020 [facility] 1 gram 09/24/2019 12:00:00 AM EST tablet 60 TAKE ONE TABLET BY MOUTH TWICE A DAY TAKE ONE TABLET BY MOUTH TWICE A DAY SOLD: 04/30/2020 [facility] 1.1-5 % 06/19/2019 12:00:00 AM EST paste 100 BRUSH TWO TIMES A DAY FOR 2 MINUTES AND EXPECTORATE BRUSH TWO TIMES A DAY FOR 2 MINUTES AND EXPECTORATE SOLD: 04/06/2020 [facility] 100,000 unit/gram 05/14/2019 12:00:00 AM EDT powder 480 APPLY TOPICALLY TO AFFECTED AREA TWO TIMES A DAY APPLY TOPICALLY TO AFFECTED AREA TWO TIMES A DAY SOLD: 04/15/2020 [facility] NITROFURANTOIN, MACROCRYSTALS 25 MG / Ni trofurantoin, Monohydrate 75 MG Oral Capsule [Macrobid] Macrobid 100 mg capsule Macrobid 100 mg capsule 01/21/2019 12:00:00 AM EDT 1 completed 05/07 [facility] ([facility]) Insurance Providers Payer name Policy type / Coverage type Policy ID Covered libertarian ID Covered libertarian's relationship to ford Policy [place] Plan Information [id number] MEDICARE [id number] SP [id number] A MEDICARE [id number] Kary [id number] W87 Medicare [place] Primary [id number] Self [id number] A [place] BCBS [id number] Spo [id number] [id number] [place] 302/307 [id number] HU2 [id number] ANSI-Medicare Part B [id number] ANSI-Commercial [id number] ANSI-Medicare Part B [id number] ANSI-Commercial [id number] ANSI-Medicare Part B [id number] ANSI-Commercial [id number] ANSI-Commercial [id number] ANSI-Medicare Part B [id number] ANSI-Commercial [id number] ANSI-Medicare Part B [id number] ANSI-Medicare Part B [id number] ANSI-Commercial [id number] BCBS [facility] UNAVAILABLE MEDICARE [id number] A ANSI-Commercial [id number] ANSI-Medicare Part B [id number] ANSI-Medicare Part B [id number] ANSI-Commercial [id number] [place] 306/806 [id number] HU2 [id number] [place] 306/806 [id number] HU2 [id number] [employer] Blue Cross [id number] Blue Cross/[place] el[place] [id number] Medicare [id number] Medicare [id number] Blue Shield of [facility] [id number] 01 [id number] Medicare [place] [id number] 18 [id number] Blue Shield [facility] UNAVAILABLE 18 UNAVAILABLE Medicare [place] UNAVAILABLE 18 UNAVAILABLE [facility] UNAVAILABLE 18 UNAVAILABLE [employer] [id number] Blue Cross/[place] [id number] Medicare [id number] Medicare [id number] [employer]CELL[employer] BCBS B [id number] S [id number] MEDICARE C [id number] S [id number] A Excell[employer] Blue Cross Excell[employer] Blue Cross [id number] Blue Cross/[place] Excell[employer] Blue Cross Medicare Medicare [id number] Medicare Medicare [place] 302/307 [id number] HU2 [id number] BCBS [place] P[place] 302/307 [id number] HU2 [id number] Excell[employer] Blue Cross Medigap Part B [id number] Self BS Of [place] Medigap Part B [id number] Self EXCELLUS BC-BS PPO 306 [id number] HU2 [id number] BCBS [place] 306/806 [id number] HU2 [id number] MEDICARE [id number] SP [id number] W87 BCBS [place] P[place] 302/307 [id number] HU2 [id number] BCBS [place] 302/307 [id number] HU2 [id number] [employer] Cross [id number] Blue Cross/[place] [id number] Medicare [id number] Medicare [id number] Medicare [id number] Medicare [id number] Problems, Conditions, and Diagnoses Code Display Name Description Problem Type Effective Dates Data Source(s) R00.2 Palpitations Palpitations Diagnosis 06/09/2020 09:50:54 A M [facility] E78.5 Hyperlipidemia, unspecified Hyperlipidemia, unspecifie d Diagnosis 06/09/2020 09:50:54 AM [facility] I10 Essential (primary) hypertension Essential (primary) h ypertension Diagnosis 06/09/2020 09:50:54 AM [facility] R07.9 Chest pain, unspecified Chest pain, unspecified Diagno sis 06/09/2020 09:50:54 AM [facility] [id number] Diarrhea Diarrhea Problem 03/28/2021 12:00:00 AM ED T MEDENT ([facility]) M85.80 [id number] Low bone density Problem 02/01/2021 12:00:00 AM EDT eCW1 ([facility]) R21 Rash and other nonspecific skin eruption Rash and other nonspecific skin eruption (R21) 05/07/2020 [id number] 05/07/2020 09:07:59 AM EDT CHARTMA KER ([facility]) L20.9 Atopic dermatitis, unspecified Atopic de rmatitis, unspecified (L20.9) 05/07/2020 [id number] 02/16/2020 10:52:39 AM EDT - 05/07/2020 12:00:00 AM EDT CHARTMAKER ([facility]) N39.0 Urinary tract infection, site not specif ied Urinary tract infection, site not specified (N39.0) 05/07/2020 [id number] 10/31/2017 11:26:57 A M EDT - 05/07/2020 12:00:00 AM EDT CHARTMAKER ([facility]) R30.0 Dysuria Dysuria (R30.0) 05/07/2020 [id number] 10/12/2015 10:55:11 AM EDT - 05/07/2020 12:00:00 AM EDT CHARTMAKER ([facility]) Surgeries/Procedures Procedure Description Date Indications Data Source(s) OFFICE OUTPATIENT NEW 30 MINUTES 03/28/2021 12:00:00 A M EDT MEDENT ([facility]) Suture Removal 07/05/2020 12:00:00 AM EST eCW1 ([facility]) SVC PRV OFFICE REG SCHEDD EVN WKEND/HOLIDAY HRS 2019 12:00:00 AM EDT CHARTMAKER ([facility]) Results ID Date Data Source VITAMIN D 25-HYDROXY 05/18/2021 12:00:00 AM EDT eCW1 ([facility]) Name Value Range Interpretation Code Description Data Malinda rce(s) Supporting Document(s) 58.1 30.0-100.0 TOTAL 25(OH) VITAMIN D eC W1 ([facility]) ID Date Data Source [id number] 05/18/2021 12:00:00 AM EDT eCW1 ([facility]) Name Value Range Interpretation Code Description Data Malinda rce(s) Supporting Document(s) Hemoglobin A1c/Hemoglobin.total in Blood 6.3 HEMOGLOBIN A1c W1 ([facility]) ID Date Data Source Comprehensive Metabolic Profile (CMP) 05/18/2021 12:00:00 AM EDT eCW1 ([facility]) Name Value Range Interpretation Code Description Data Malinda rce(s) Supporting Document(s) 0.67 0.55-1.30 CREATININE FOR GFR eCW1 ([facility]) 119 70-100 GLUCOSE, FASTING eCW1 ([facility]) 16 7-18 BLOOD UREA NITROGEN eCW1 ([facility]) 140 136-145 SODIUM LEVEL eCW1 ([facility]) > 60.0 >39 GLOMERULAR FILTRATION RATE eCW 1 ([facility]) 4.9 3.5-5.1 POTASSIUM SERUM eCW1 ([facility]) 31 21-32 CARBON DIOXIDE LEVEL eCW1 ([facility]) 14 7-37 AST/SGOT eCW1 ([facility]) 9.1 8.8-10.2 CALCIUM LEVEL eCW1 ([facility]) 107 98-107 CHLORIDE LEVEL eCW1 ([facility]) 28 12-78 ALT/SGPT eCW1 ([facility]) 7.0 6.4-8.2 TOTAL PROTEIN eCW1 ([facility]) 0.7 0.2-1.0 BILIRUBIN,TOTAL eCW1 ([facility]) 71 45-117 ALKALINE PHOSPHATASE eCW1 ([facility]) 4.0 3.2-5.2 ALBUMIN eCW1 ([facility]) 1.3 1.2-2.2 ALBUMIN/GLOBULIN RATIO eCW1 ([facility]) ID Date Data Source [id number] 06/09/2020 10:15:32 AM EST [facility] Name Value Range Interpretation Code Description Data Malinda rce(s) Supporting Document(s) &PDF [facility] WDXGSt1vVcVHUxMi76/KWJtvYUDcp0LoWIbrAYp5RInuTZQpB3DmnWcnGXcKVUgNVHiAAT4CRX6rXXPd waW [file] AgICAgICAgICAgICAgICAgICAgICAgICAgICAgICAgICAgICAgICAgICAgICAgICAgICAgICAgICAgIC AgICAgICAgICAgICAgICAgICAgICAgICANCiAgICAgICAgICAgICAgICAgICAgICAgICAgICAgICAgIC AgICAgICAgICAgICAgICAgICAgICAgICAgICAgICAg ICAgICAgICAgICAgICAgICAgICAgICAgICAgICAgICAgICANCiAgICAgICAgICAgICAgICAgICAgICAg ICAgICAgICAgICAgICAgICAgICAgICAgICAgICAgICAgICAgICAgICAgICAgICAgICAgICAgICAgICAg ICAgICAgICAgICAgICAgICANCiAgICAgICAgICAgIC AgICAgICAgICAgICAgICAgICAgICAgICAgICAgICAgICAgICAgICAgICAgICAgICAgICAgICAgICAgIC AgICAgICAgICAgICAgICAgICAgICAgICAgICANCiAgICAgICAgICAgICAgICAgICAgICAgICAgICAgIC AgICAgICAgICAgICAgICAgICAgICAgICAgICAgICAg ICAgICAgICAgICAgICAgICAgICAgICAgICAgICAgICAgICAgICANCiAgICAgICAgICAgICAgICAgICAg ICAgICAgICAgICAgICAgICAgICAgICAgICAgICAgICAgICAgICAgICAgICAgICAgICAgICAgICAgICAg ICAgICAgICAgICAgICAgICAgICANCiAgICAgICAgIC AgICAgICAgICAgICAgICAgICAgICAgICAgICAgICAgICAgICAgICAgICAgICAgICAgICAgICAgICAgIC AgICAgICAgICAgICAgICAgICAgICAgICAgICAgICANCiAgICAgICAgICAgICAgICAgICAgICAgICAgIC AgICAgICAgICAgICAgICAgICAgICAgICAgICAgICAg ICAgICAgICAgICAgICAgICAgICAgICAgICAgICAgICAgICAgICAgICANCiAgICAgICAgICAgICAgICAg ICAgICAgICAgICAgICAgICAgICAgICAgICAgICAgICAgICAgICAgICAgICAgICAgICAgICAgICAgICAg ICAgICAgICAgICAgICAgICAgICAgICANCiAgICAgIC AgICAgICAgICAgICAgICAgICAgICAgICAgICAgICAgICAgICAgICAgICAgICAgICAgICAgICAgICAgIC AgICAgICAgICAgICAgICAgICAgICAgICAgICAgICAgICANCjw/cGNjA9vxgJZqwzY0U6ihHh3QOf6HRY 7ht7YiWJBaCLkmacIyXttXYnXiBKEmFpoFGuz2WUtl EZ7KbQUkP4CaS0QsLFdqDV3NIDXyZYZmrUDtQHWcAJXqIwR6OIGtCRazAM0VnPQtINnhEXNxEBMgRuHx OYZxLW7QLOBwN126idKiYu5EOd2FVdFjNK2vcq6WRBFoTNYlBieUEdb1ZHhtOC0ZtOUeT7KahOBro8iW DrCoN6EHLYQ1YBXaEe1DTQOjWrMkCGXtFEkgQL1qKX WlXCJMfVepbvH3FM7MSU4onzBlNX2WScQqIs4hYv8IFiApL5LzN4OcZQTtZJWIWFkcFH1IFHRpTZR6XZ RbFJQkSHNSVdBhN50jNF1DU6Lfy87nOgW9QJJvXcBqPEgjIG59sFaonbGzyNJboMduXU9MDh6+DQplbm RvYmoNCnhyZWYNCjAgNDENCjAwMDAwMDAwMDAgNjU1 UnYqCt1NOMWpYQElFBAlCtAkZZYuYRJkVNbgFEAoRTT1GhN1AIAqGHFeNN4QRbVwUHPgTkr4PnkpCTRg LRFcid0TYTIvWEWvOAI4JHCkTIIiYIQvWHauFUPxPMSjVahjNUQuTFQzJS4JWjRhOGGdXHJ7QNveWJLd GUAvqd6RHDOvOAZsSOE5VnBtIKRcKPOkDSbsXULyPJ O6EBM0JUKrWVJnRT3XGlJdNEUsBWV7KCJkPJUgODNgjd5HHQXfFVFyVbNbEjWkYIWzTKPpKKcoCBWqJF N4BMjuTPBlVHHrHH0DTwPnDKNmRCtoCIBnVQKvKHCmvq6GFBXaGUGaBBG9ZRZfWBKkPAZkSPmxSGTgIR S3QSUnRKHxDCElUJ6MLtMlRKWlPQBaMUtlUFVzBHXh ww0ZOHSaSITlGwqbHRRcRABmWPMjIWzyBMKsXTWhHVH5ZSNoBITpPP0ONkTyEXZmWAQlFoshJYRjEKDm hw0GOYQaOZZpQHCmQVClDVHcMSZdZWvtUBLnQRK9HmP3CPNkUNOzUS0VCpBuBMEuPTR8XZOsXTPhAJOa ug8MBEYxVCPbBEPxFCFeTGQtPSRpNEvmLXQvIMSpCo j8IGBmPGXaCT3ZHqJhBLBwUvNgTRErJPNmTMGrgx6VGFZrYJSeRPX4MYFmIQQdUBEmNSgpSGIsRJY9Lr n0SFTzGHMqDP9GZuIjWIKxOhD9VlBmYQHtZLMgxw2ROSOvGSIuFiKkKnDfNLGtHFMiMAmzMQOlJJE7Wi i4PSWzHLFcTH7MArRrBOMoLwboHOYvGRWuKBGntc9Y LIYuYBW0RrI7VEAuZHBtZGMqKUcdRKDkUMV8TtO0SEImLJYuRW8JSnHlVZOxXQovCRNcCQZuAVMmzw7F HLLbJMX2XaMjBPAbWPGuWTGrSXcpTGWbFFV8IAKcNMTiDANtFG0PPfXvJKWaYVgeASShOYAaEQNrjd4J UWPwXKQ1Yye7KpZqGVMuMIFfAYqpWEMcSOX4VqRrPG HkYUYrQT2LVrXvXLHoGcq7VivcFXQxWBLhms5EQLPkPOV2BEi1PQUdTKYgAXWwGXj3epJrqTMqUWz0WM 1WP8GhrnNuPQZFPv2Aj173PMWeLIBvHl9TX3wmNf3fAYTaJIUOCo3ZEHc4L8QlNJK9UmLlLUQ5H2J5Jt YxNzczZDBhMzllZDljNzU+HJu5PNP1RsGmPwUqNGWe YNuhApU2RmLvGKVyPJXcTBR9IZ9zZMCVHd0+ZJsjzXOeuPsoSDTYIyC5SNX2ZInjSFGCAm7Z Procedure Social History Code Duration Value Status Description Data Source(s ) Smoking 05/18/2021 12:00:00 AM EDT Former Smoker completed Former Smoker eCW1 ([facility]) Smoking 02/01/2021 12:00:00 AM EDT Former Smoker completed Former Smoker eCW1 ([facility]) Smoking 11/10/2020 12:00:00 AM EDT Former Smoker completed Former Smoker eCW1 ([facility]) Smoking 11/02/2020 12:00:00 AM EDT Former Smoker completed Former Smoker eCW1 ([facility]) Smoking 09/29/2020 12:00:00 AM EST Former Smoker completed Former Smoker eCW1 ([facility]) Smoking 08/22/2020 12:00:00 AM EST Former Smoker completed Former Smoker eCW1 ([facility]) Smoking 08/22/2020 12:00:00 AM EST Former Smoker completed Former Smoker eCW1 ([facility]) Smoking 06/27/2020 12:00:00 AM EST Former Smoker completed Former Smoker eCW1 ([facility]) Smoking 06/27/2020 12:00:00 AM EST Former Smoker completed Former Smoker eCW1 ([facility]) Smoking 05/30/2020 12:00:00 AM EST Former Smoker completed Former Smoker eCW1 ([facility]) Smoking 05/07/2020 12:00:00 AM EDT Former smoker completed Former smoker CHARTMAKER ([facility]) Smoking 04/28/2020 12:00:00 AM EDT Former Smoker completed Former Smoker eCW1 ([facility]) Vital Signs ID Date Data Source UNK Name Value Range Interpretation Code Description Data Source(s) Body weight 167 [lb_av] 167 [lb_av] eCW1 ([facility]) Body height 61.5 [in_i] 61.5 [in_i] eCW1 ([facility]) Body mass index (BMI) [Ratio] 31.04 kg/m2 31.04 kg/m2 eCW1 ([facility]) Heart rate 80 /min 80 /min eCW1 ([facility]) Respiratory rate 20 /min 20 /min eCW1 ([facility]) Body temperature 97.1 [degF] 97.1 [degF] eCW1 ( [facility]) Systolic blood pressure 120 mm[Hg] 120 mm[Hg] e CW1 ([facility]) Diastolic blood pressure 70 mm[Hg] 70 mm[Hg] eCW1 ([facility]) Body weight 167.00 [lb_av] 167.00 [lb_av] MEDEN T ([facility]) Diastolic blood pressure 75 mm[Hg] 75 mm[Hg] MEDENT ([facility]) Body height 63 [in_i] 63 [in_i] [facility] 5'3" Systolic blood pressure 132 mm[Hg] 132 mm[Hg] M EDENT ([facility]) Heart rate 63 /min 63 /min MEDENT ([facility]) Body mass index (BMI) [Ratio] 29.6 kg/m2 29.6 k g/m2 MEDENT ([facility]) Body weight 75.751 kg 75.751 kg MEDENT ([facility]) Body temperature 96.9 [degF] 96.9 [degF] MEDENT ([facility]) Body weight 169.4 [lb_av] 169.4 [lb_av] eCW1 ([facility]) Body height 61.5 [in_i] 61.5 [in_i] eCW1 ([facility]) Body mass index (BMI) [Ratio] 31.49 kg/m2 31.49 kg/m2 eCW1 ([facility]) Heart rate 82 /min 82 /min eCW1 ([facility]) Respiratory rate 19 /min 19 /min eCW1 ([facility]) Body temperature 96.6 [degF] 96.6 [degF] eCW1 ( [facility]) Systolic blood pressure 130 mm[Hg] 130 mm[Hg] e CW1 ([facility]) Diastolic blood pressure 60 mm[Hg] 60 mm[Hg] eCW1 ([facility]) Body weight 171 [lb_av] 171 [lb_av] eCW1 ([facility]) Body height 61.5 [in_i] 61.5 [in_i] eCW1 ([facility]) Body mass index (BMI) [Ratio] 31.78 kg/m2 31.78 kg/m2 eCW1 ([facility]) Body weight 174 [lb_av] 174 [lb_av] eCW1 ([facility]) Body height 61.5 [in_i] 61.5 [in_i] eCW1 ([facility]) Body mass index (BMI) [Ratio] 32.34 kg/m2 32.34 kg/m2 eCW1 ([facility]) Heart rate 76 /min 76 /min eCW1 ([facility]) Respiratory rate 20 /min 20 /min eCW1 ([facility]) Body temperature 97.1 [degF] 97.1 [degF] eCW1 ( [facility]) Systolic blood pressure 130 mm[Hg] 130 mm[Hg] e CW1 ([facility]) Diastolic blood pressure 80 mm[Hg] 80 mm[Hg] eCW1 ([facility]) Body weight 175 [lb_av] 175 [lb_av] eCW1 ([facility]) Body height 61.5 [in_i] 61.5 [in_i] eCW1 ([facility]) Body mass index (BMI) [Ratio] 32.53 kg/m2 32.53 kg/m2 eCW1 ([facility]) Heart rate 67 /min 67 /min eCW1 ([facility]) Body temperature 97.1 [degF] 97.1 [degF] eCW1 ( [facility]) Systolic blood pressure 118 mm[Hg] 118 mm[Hg] e CW1 ([facility]) Diastolic blood pressure 64 mm[Hg] 64 mm[Hg] eCW1 ([facility]) Body height 61.5 [in_i] 61.5 [in_i] eCW1 ([facility]) Body weight 174.0 [lb_av] 174.0 [lb_av] eCW1 ([facility]) Systolic blood pressure 122 mm[Hg] 122 mm[Hg] e CW1 ([facility]) Diastolic blood pressure 76 mm[Hg] 76 mm[Hg] eCW1 ([facility]) Body mass index (BMI) [Ratio] 32.34 kg/m2 32.34 kg/m2 eCW1 ([facility]) Body weight 168 [lb_av] 168 [lb_av] eCW1 ([facility]) Body height 61.5 [in_i] 61.5 [in_i] eCW1 ([facility]) Body mass index (BMI) [Ratio] 31.23 kg/m2 31.23 kg/m2 eCW1 ([facility]) Systolic blood pressure 124 mm[Hg] 124 mm[Hg] e CW1 ([facility]) Diastolic blood pressure 75 mm[Hg] 75 mm[Hg] eCW1 ([facility]) Systolic blood pressure 126 mm[Hg] 126 mm[Hg] e CW1 ([facility]) Body weight 168.8 [lb_av] 168.8 [lb_av] eCW1 ([facility]) Body height 61.5 [in_i] 61.5 [in_i] eCW1 ([facility]) Body mass index (BMI) [Ratio] 31.37 kg/m2 31.37 kg/m2 eCW1 ([facility]) Diastolic blood pressure 82 mm[Hg] 82 mm[Hg] eCW1 ([facility]) Inhaled oxygen concentration 21 % 21 % CHARTMAKER ([facility]) Body temperature 97.2 [degF] 97.2 [degF] CHARTM OLY ([facility]) Heart rate 71 /min 71 /min CHARTMAKER ([facility]) Systolic blood pressure 140 mm[Hg] 140 mm[Hg] C HARTMAKER ([facility]) Diastolic blood pressure 70 mm[Hg] 70 mm[Hg] CHARTMAKER ([facility]) Body height 62 [in_i] 62 [in_i] CHARTMAKER ([facility]) Body weight 165 [lb_av] 165 [lb_av] CHARTMAKER ([facility]) Body mass index (BMI) [Ratio] 30.7247080372727 kg/m2 30.4881872567129 kg/m2 CHARTMAKER ([facility]) Oxygen saturation in Arterial blood by Pulse oximetry 98 % 98 % CHARTMAKER ([facility]) Body temperature 96.9 [degF] 96.9 [degF] eCW1 ( [facility]) Body weight 167 [lb_av] 167 [lb_av] eCW1 ([facility]) Body height 61.5 [in_i] 61.5 [in_i] eCW1 ([facility]) Body mass index (BMI) [Ratio] 31.04 kg/m2 31.04 kg/m2 eCW1 ([facility]) Heart rate 74 /min 74 /min eCW1 ([facility]) Respiratory rate 20 /min 20 /min eCW1 ([facility]) Systolic blood pressure 130 mm[Hg] 130 mm[Hg] e CW1 ([facility]) Diastolic blood pressure 76 mm[Hg] 76 mm[Hg] eCW1 ([facility]) Patient Treatment Plan of Care Planned Activity Planned Date Details Description Data Source (s) Cimetidine 200 MG Oral Tablet 08/22/2020 12:00:00 AM EST eCW1 ([facility]) Cimetidine 200 MG Oral Tablet 08/22/2020 12:00:00 AM EST eCW1 ([facility]) levocetirizine dihydrochloride 5 MG Oral Tablet 07/13/2020 12:00:00 AM EST eCW1 ([facility]) levocetirizine dihydrochloride 5 MG Oral Tablet 07/13/2020 12:00:00 AM EST eCW1 ([facility]) levocetirizine dihydrochloride 5 MG Oral Tablet 07/13/2020 12:00:00 AM EST eCW1 ([facility]) Prednisone 10 MG Oral Tablet 06/28/2020 12:00:00 AM EST eCW1 ([facility]) Prednisone 10 MG Oral Tablet 06/28/2020 12:00:00 AM EST eCW1 ([facility])
--- NOTE | 2021-05-24 09:48 | ROOR ---
Patient Name: Shreya Cedillo Procedure Date: 05/24/2021 9:18 AM Date of : 1945 Age: 76 Room: [facility] Gender: Female Note Status: Finalized Procedure: Total Colonoscopy to Cecum + Bx r/o Microscopic Colitis + Cold Snare Polypectomy Indications: Clinically significant diarrhea of unexplained origin Providers: Devin Balderas MD Referring MD: Telma Woodard NP Requesting Provider: Medicines: Monitored Anesthesia Care Complications: No immediate complications. Procedure: Pre-Anesthesia Assessment: - The heart rate, respiratory rate, oxygen saturations, blood pressure, adequacy of pulmonary ventilation, and response to care were monitored throughout the procedure. The Colonoscope was introduced through the anus and advanced to the cecum, identified by appendiceal orifice and ileocecal valve. The colonoscopy was performed without difficulty. The patient tolerated the procedure well. The quality of the bowel preparation was good. Findings: The perianal and digital rectal examinations were normal. Non-bleeding internal hemorrhoids were found during retroflexion. The hemorrhoids were small and Grade I (internal hemorrhoids that do not prolapse). Scattered small-mouthed diverticula were found in the recto-sigmoid colon, sigmoid colon and descending colon. A small polyp was found at 20 cm proximal to the anus. The polyp was sessile. The polyp was removed with a jumbo cold forceps. Resection and retrieval were complete. A small polyp was found at 50 cm proximal to the anus. The polyp was sessile. The polyp was removed with a cold snare. Resection and retrieval were complete. The exam was otherwise without abnormality on direct and retroflexion views. Biopsies for histology were taken with a cold forceps from the cecum, ascending colon, transverse colon, descending colon and rectosigmoid colon for evaluation of microscopic colitis. The exam was otherwise without abnormality. Impression: - Non-bleeding internal hemorrhoids. - Diverticulosis in the recto-sigmoid colon, in the sigmoid colon and in the descending colon. - One small polyp at 20 cm proximal to the anus, removed with a jumbo cold forceps. Resected and retrieved. - One small polyp at 50 cm proximal to the anus, removed with a cold snare. Resected and retrieved. - The examination was otherwise normal on direct and retroflexion views. - The examination was otherwise normal. - Biopsies were taken with a cold forceps from the cecum, ascending colon, transverse colon, descending colon and rectosigmoid colon for evaluation of microscopic colitis. - The exam was otherwise normal to the cecum. Recommendation: - Patient has a contact number available for emergencies. The signs and symptoms of potential delayed complications were discussed with the patient. Return to normal activities tomorrow. Written discharge instructions were provided to the patient. - High fiber diet. - Discharge patient to home. - Continue present medications. - Await pathology results. - Telephone GI clinic for pathology results in 1 week. - Return to referring physician. - The findings and recommendations were discussed with the patient. Procedure Code(s): --- Professional --- 27879, Colonoscopy, flexible; with removal of tumor(s), polyp(s), or other lesion(s) by snare technique 62921, 59, Colonoscopy, flexible; with biopsy, single or multiple Diagnosis Code(s): --- Professional --- K64.0, First degree hemorrhoids K63.5, Polyp of colon R19.7, Diarrhea, unspecified K57.30, Diverticulosis of large intestine without perforation or abscess without bleeding CPT copyright 2019 [employer]. All rights reserved. The codes documented in this report are preliminary and upon concrete polisher review may be revised to meet current compliance requirements. Devin Balderas MD Devin Balderas MD 05/24/2021 9:47:52 AM Electronically signed by Devin Balderas MD Number of Addenda: 0 Note Initiated On: 05/24/2021 9:18 AM Estimated Blood Loss: Estimated blood loss: none.
[2021-05-24 10:05] VITALS: BP 163/85
== END 2021-05-24 10:40 | disposition home or self-care (01) ==
LOC: M OPP 08:45
PROVIDERS: ATTEND Internal Medicine Gastroenterology
DX: K63.5 Polyp of colon (principal); K64.0 First degree hemorrhoids; K57.30 Diverticulosis of large intestine without perforation or abscess without bleeding; R19.7 Diarrhea, unspecified; Z79.899 Other long term (current) drug therapy; Z88.0 Allergy status to penicillin; Z88.5 Allergy status to narcotic agent; Z88.8 Allergy status to other drugs, medicaments and biological substances; Z87.891 Personal history of nicotine dependence